=== PATIENT | male | born 1950 | race Caucasian/White ===

== ENCOUNTER → 2020-03-17 09:30 | Outpatient (BNVA) | payer MEDICARE, SELFPAY | PROVIDERS: Family Provider Family Medicine; PCP Family Medicine; Visit Provider Internal Medicine Cardiovascular Disease | DX: I48.91 Unspecified atrial fibrillation (principal); T46.0X1A Poisoning by cardiac-stimulant glycosides and drugs of similar action, accidental (unintentional), initial encounter; E78.5 Hyperlipidemia, unspecified | CPT/HCPCS: 80048; 80061; 80162; 85025 ==

== ENCOUNTER → 2021-01-18 13:46 | Outpatient (BNVA) | payer MEDICARE, SELFPAY | PROVIDERS: Family Provider Family Medicine; PCP Family Medicine; Visit Provider Family Medicine | DX: E11.65 Type 2 diabetes mellitus with hyperglycemia (principal); E11.621 Type 2 diabetes mellitus with foot ulcer; L97.509 Non-pressure chronic ulcer of other part of unspecified foot with unspecified severity | CPT/HCPCS: 83036 ==

== ENCOUNTER → 2021-03-26 09:38 | Outpatient (BNVA) | payer MEDICARE, SELFPAY | PROVIDERS: Family Provider Family Medicine; PCP Family Medicine; Visit Provider Internal Medicine Cardiovascular Disease | DX: Z86.79 Personal history of other diseases of the circulatory system (principal); Z79.899 Other long term (current) drug therapy | CPT/HCPCS: 80048; 80162; 85025 ==

== ENCOUNTER → 2021-04-23 09:05 | Outpatient (BNVA) | payer MEDICARE, SELFPAY | PROVIDERS: Family Provider Family Medicine; PCP Family Medicine; Visit Provider Family Medicine | DX: R73.9 Hyperglycemia, unspecified (principal) | CPT/HCPCS: 83036 ==

== ENCOUNTER → 2022-03-29 09:58 | Outpatient (BNVA) | payer MEDICARE, SELFPAY | PROVIDERS: Family Provider Family Medicine; PCP Family Medicine; Visit Provider Internal Medicine Cardiovascular Disease | DX: I48.91 Unspecified atrial fibrillation (principal); I10 Essential (primary) hypertension; K21.9 Gastro-esophageal reflux disease without esophagitis; E11.9 Type 2 diabetes mellitus without complications; Z79.84 Long term (current) use of oral hypoglycemic drugs; Z87.891 Personal history of nicotine dependence | CPT/HCPCS: 93005; 99214 ==

== ENCOUNTER 2022-05-29 12:40 | Outpatient (CLI) | payer MEDICARE, SELFPAY ==
--- NOTE | 2022-05-29 14:15 | USCV_ITS ---
Efrem Meza Age: 72 Gender: M : 1950 Exam Date: 05/29/2022 13:56 Ordering Phys: Jessie Machado MD ([email or web address]) Technologist: Umesh Ojeda Exam Location: [facility] [place] Indication: Shortness of breath BP: 132 / 76 HR: 73 Rhythm: Other Technical Quality: Adequate MEASUREMENTS (Male / Female) Normal Values 2D ECHO LV Diastolic Diameter PLAX 4.6 cm 4.2 - 5.9 / 3.9 - 5.3 cm LV Systolic Diameter PLAX 2.9 cm IVS Diastolic Thickness 0.5 cm 0.6 - 1.0 / 0.6 - 0.9 cm IVS Systolic Thickness 0.9 cm LVPW Diastolic Thickness 1.0 cm 0.6 - 1.0 / 0.6 - 0.9 cm LVPW Systolic Thickness 1.1 cm LVOT Diameter 2.0 cm LV Ejection Fraction 2D Teich 67.6 % LV Ejection Fraction MOD 2C 70.6 % LV Ejection Fraction 2C AL 70.9 % LA Diameter 4.0 cm LA Width 4.0 cm LA Height 5.4 cm RA Width 4.1 cm RA Height 6.2 cm Aorta at Sinotubular Diameter 2.6 cm IVC Diameter 1.7 cm M-MODE Aortic Annulus Diameter 2.9 cm LA Ao Ratio MM 1.4 MV E Point Septal Separation 0.7 cm DOPPLER AV Peak Velocity 116.3 cm/s LVOT Peak Velocity 100.0 cm/s AV Area Cont Eq vti 2.8 cm squared AV Area Cont Eq pk 2.7 cm squared MV Peak Velocity 138.0 cm/s MV Area PHT 4.1 cm squared MV E' Velocity 63.5 cm/s Mitral E to MV E' Ratio 7.7 Mitral E to LV E' Lateral Ratio 7.9 Mitral E to LV E' Septal Ratio 7.6 TR Peak Velocity 308.1 cm/s TR Peak Gradient 38.0 mmHg TR Mean Velocity 219.4 cm/s TR Mean Gradient 25.8 mmHg TR Velocity Time Integral 80.6 cm Right Atrial Pressure 3.0 mmHg Pulmonary Artery Systolic Pressu 41.0 mmHg PV Peak Velocity 80.0 cm/s RV Acceleration Time 0.1 s RV Ejection Time 0.2 s RV AcT/ET 0.3 FINDINGS Left Ventricle Normal left ventricular size, systolic function and wall thickness, with no regional wall motion abnormalities. Left ventricular ejection fraction is estimated at 60 %. Rhythm precludes evaluation of diastolic function. Right Ventricle Normal right ventricular size and systolic function. Right ventricular systolic pressure 44 mmHg. Right Atrium Mildly increased right atrial size. Left Atrium Mildly increased left atrial size. Mitral Valve Mildly thickened mitral valve. No mitral valve stenosis. Trace mitral valve regurgitation. Aortic Valve Aortic valve not well visualized. No aortic valve stenosis. No aortic valve regurgitation. Tricuspid Valve Structurally normal tricuspid valve. Trace tricuspid valve regurgitation. Pulmonic Valve Pulmonic valve not well visualized. Pericardium No pericardial effusion. Aorta Normal size aortic root and proximal ascending aorta. IVC Normal IVC dimension with >50% respiratory change of the inferior vena cava. CONCLUSIONS 1. Normal left ventricular size, systolic function and wall thickness, with no regional wall motion abnormalities. Left ventricular ejection fraction is estimated at 60 %. 2. No significant valvular abnormality. 3. No prior similar studies to compare. Jessie Machado MD (Electronically Signed) Final Date: 03 June 2022 09:17 S
== END 2022-05-29 12:41 | disposition home or self-care (01) ==
LOC: RAD 12:41
PROVIDERS: Family Provider Family Medicine; PCP Family Medicine; Visit Provider Internal Medicine Cardiovascular Disease
DX: R06.02 Shortness of breath (principal); I48.91 Unspecified atrial fibrillation
CPT/HCPCS: 93306

== ENCOUNTER → 2022-08-08 15:58 | Outpatient (BNVA) | payer MEDICARE, SELFPAY | PROVIDERS: Family Provider Family Medicine; PCP Family Medicine; Visit Provider Nurse Practitioner Family | DX: E11.9 Type 2 diabetes mellitus without complications (principal); I10 Essential (primary) hypertension | CPT/HCPCS: 80053; 80061; 83036; 84443 ==

== ENCOUNTER → 2023-03-28 08:56 | Outpatient (BNVA) | payer MEDICARE, SELFPAY | PROVIDERS: Family Provider Family Medicine; PCP Family Medicine; Visit Provider Internal Medicine Cardiovascular Disease | DX: I48.91 Unspecified atrial fibrillation (principal); Z87.891 Personal history of nicotine dependence; Z79.01 Long term (current) use of anticoagulants | CPT/HCPCS: 99214 ==

== ENCOUNTER → 2024-03-29 11:22 | Outpatient (BNVA) | payer MEDICARE, SELFPAY | PROVIDERS: Family Provider Family Medicine; PCP Family Medicine; Visit Provider Internal Medicine Cardiovascular Disease | DX: E78.5 Hyperlipidemia, unspecified (principal); R06.02 Shortness of breath | CPT/HCPCS: 36415; 80048; 80061; 80076; 83880 ==

== ENCOUNTER 2024-04-11 12:39 | Observation (INO) | payer MEDICARE, SELFPAY ==
[2024-04-11] VITALS (19 sets, daily range): BP systolic 112–155; BP diastolic 61–78; PULSE 75–117; RESP 15–22; TEMP 36.8–36.9; O2SAT 90–94; BMI 27.2; BMI 26.1
--- NOTE | 2024-04-11 12:40 | XRR_ITS ---
PROCEDURE INFORMATION: Exam: XR Chest Exam date and time: 04/11/2024 1:07 PM Age: 74 years old Clinical indication: Pain; Chest pressure; Additional info: Chest pain TECHNIQUE: Imaging protocol: Radiologic exam of the chest. Views: 1 view. COMPARISON: CT angio chest PE protcl [id number] 11/14/2017 7:32 AM FINDINGS: Lungs: There is very faint hazy interstitial coarsening throughout both lungs which is more pronounced in the right upper lobe. No dense consolidation or mass noted. Pleural spaces: Unremarkable. No pleural effusion. No pneumothorax. Heart/Mediastinum: Unremarkable. No cardiomegaly. Bones/joints: Unremarkable. XR/XR chest 1V portable [id number] IMPRESSION: Bilateral interstitial lung disease which has developed since 2018. This could represent acute interstitial pneumonia.
--- NOTE | 2024-04-11 12:40 | ECG_ITS ---
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 Measurements Intervals [place] Rate: 115 P: 0 HI: 0 QRS: 73 QRSD: 95 T: -16 QT: 361 QTc: 501 Interpretive Statements ATRIAL FIBRILLATION WITH RAPID VENTRICULAR RESPONSE WITH ABERRANT CONDUCTION OR VENTRICULAR PREMATURE COMPLEXES MARKED ST DEPRESSION No previous ECG available for comparison Electronically Signed On 04-12-2024 14:10:21 CDT by Johnie Garcia M.D. [email or web address]
[2024-04-11 13:00] LABS: Basophils # 0.1 10^3/uL (0.0-0.1); Basophils % 0.5 %; Eosinophils % 0.1 %; Hematocrit 41.1 % (37-53); Lymphocytes # 1.2 10^3/uL (0.8-4.8); Lymphocytes % 9.4 %; Mean Corpuscular HGB Conc 33.6 g/dL (30-55); Mean Corpuscular Hemoglobin 31.2 pg (27-33); Mean Corpuscular Volume 92.8 fl (82-101); Mean Platelet Volume 8.6 fL (7.4-10.4); Monocytes # 0.6 10^3/uL (0.2-0.9); Monocytes % 4.7 %; Neutrophils % 84.1 %; Nucleated Red Blood Cells % 0.2 %; Platelet Count 380 10^3/cmm (157-399); Red Blood Count 4.43 10^6/uL (3.85-5.65); Red Cell Distribution Width 15.7 % (12.1-15.1); White Blood Count 12.94 10^3/uL (3.29-11.43)
[2024-04-11] MEDS: dilTIAZem 5 mg/mL SDV 5 mL IVP (13:13)
[2024-04-11 13:16] LABS: INR 3.61 (0.8-1.2)
[2024-04-11] MEDS: dilTIAZem 100 MG in sodium chloride 0.9% (add-van) 100 ML IV (13:17)
[2024-04-11 13:26] LABS: Troponin(5th) Baseline 26 ng/L (0-15)
[2024-04-11 13:47] LABS: Digoxin 1.9 ng/mL (0.6-1.2)
[2024-04-11 14:14] LABS: Alanine Aminotransferase 13 U/L (0-41); Albumin Level 3.4 g/dL (3.5-5.2); Alkaline Phosphatase 104 U/L (40-130); Anion Gap 22.5 (5-19); Aspartate Amino Transferase 21 U/L (0-40); Blood Urea Nitrogen 18 mg/dL (8-23); Calcium 8.6 mg/dL (8.5-10.5); Carbon Dioxide 28 mmol/L (22-29); Chloride 85 mmol/L (98-107); Creatinine Clr Calc Pharmacy 98.4222; Globulin 4.5 g/dL (1.3-4.6); Glucose 205 mg/dL (65-115); NT Pro B Type Natriuretic Pept 863 pg/mL (0-125); Osmolality Calculated 282 mOsm/kg (285-295); Potassium 3.5 mmol/L (3.5-5.1); Sodium 132 mmol/L (136-145); Total Bilirubin 1.2 mg/dL (0.15-1.2); Total Protein 7.9 g/dL (6.6-8.7)
--- NOTE | 2024-04-11 14:24 | CTR_ITS ---
PROCEDURE INFORMATION: Exam: CTA Chest With Contrast Exam date and time: 04/11/2024 2:43 PM Age: 74 years old Clinical indication: Other: Right sided pleuritic chest pain TECHNIQUE: Imaging protocol: Computed tomographic angiography of the chest with contrast. Exam focused on the arteries. 3D rendering (Not supervised by radiologist): MIP and/or 3D reconstructed images were created by the technologist. Radiation optimization: All CT scans at this facility use at least one of these dose optimization techniques: automated exposure control; mA and/or kV adjustment per patient size (includes targeted exams where dose is matched to clinical indication); or iterative reconstruction. Contrast material: OMNI 350; Contrast volume: 75 ml; Contrast route: INTRAVENOUS (IV); COMPARISON: CT angio chest PE protcl [id number] 11/14/2017 7:32 AM RADIATION DOSE METRICS: Total DLP (mGy-cm): 461.76 FINDINGS: Pulmonary arteries: Normal. No pulmonary emboli. Aorta: Unremarkable. No aortic aneurysm. No aortic dissection. Lungs: There is diffuse nodular interstitial infiltrate throughout both lungs. The infiltrate is more pronounced on the right than left. No lung mass noted. Pleural spaces: Unremarkable. No pneumothorax. No pleural effusion. Heart: Unremarkable. No cardiomegaly. No pericardial effusion. Lymph nodes: Unremarkable. No enlarged lymph nodes. Bones/joints: Unremarkable. No acute fracture. Soft tissues: Unremarkable. CT/CT angio chest PE protcl [id number] IMPRESSION: Bilateral interstitial pneumonia
--- NOTE | 2024-04-11 14:40 | ECG_ITS ---
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 Measurements Intervals [place] Rate: 95 P: 0 LA: 0 QRS: 70 QRSD: 97 T: -6 QT: 406 QTc: 513 Interpretive Statements ATRIAL FIBRILLATION MARKED ST DEPRESSION Compared to ECG 04/11/2024 12:40:11 Ventricular premature complex(es) no longer present Aberrant conduction of supraventricular beat(s) no longer present ST (T wave) deviation still present Electronically Signed On 04-12-2024 14:16:08 CDT by Johnie Garcia M.D. [email or web address]
[2024-04-11] MEDS: iohexol 350 mg/mL 500 mL Btl (per mL) IV (14:47)
--- NOTE | 2024-04-11 15:08 | ED_ITS ---
HPI - Chest Pain 2 General: Chief Complaint: Chest Pain Stated Complaint: CP SOB Time Seen by Provider: 04/11/24 12:49 History of Present Illness: This patient is a 74-year-old white male who presents to the emergency department stating that he has had some right-sided chest discomfort since Friday morning. He states it only hurts with deep breathing. He has had a cough which has been nonproductive. No fever. No shortness of breath. Currently rates the chest discomfort a 3-4 with deep breathing only. He states last week he did have some lower extremity edema and his primary care physician had placed him on some Lasix and that has resolved now. Patient does have a history of atrial fibrillation and is on Xarelto, digoxin and diltiazem as well as metoprolol. Also has a history of congestive heart failure, neuropathy and dum-[id number] diabetes. He does not smoke. Related Data Home Medications Medication Instructions Recorded Confirmed aspirin 81 mg tablet,delayed 81 mg PO DAILY 03/17/20 03/29/24 release (Adult Aspirin Regimen) blood sugar diagnostic (Accutrend 04/09/21 03/31/24 Glucose test strips) Previous Rx's Medication Instructions Recorded blood-glucose meter (Accu-Chek #1 ea 01/19/21 Guide Glucose Meter) lancets (Accu-Chek Softclix #200 ea 01/19/21 Lancets) atorvastatin 40 mg tablet 40 mg PO .HS #90 tabs 02/04/23 digoxin 250 mcg (0.25 mg) tablet 250 mcg PO DAILY #90 tabs 03/11/23 diltiazem HCl 180 mg capsule,24 180 mg PO DAILY #90 caps 03/11/23 hr,extended release rivaroxaban 20 mg tablet (Xarelto) 20 mg PO DAILY #90 tabs 03/28/23 omeprazole 20 mg capsule,delayed See Rx Instructions .Route 05/26/23 release .COMPLEX #90 caps metformin 500 mg tablet 500 mg PO BID #180 tabs 01/28/24 metoprolol succinate 50 mg 50 mg PO DAILY #90 tabs 01/28/24 tablet,extended release 24 hr furosemide 20 mg tablet (Lasix) 20 mg PO DAILY #30 tabs 04/01/24 potassium chloride 10 mEq 10 meq PO DAILY #90 tabs 04/09/24 tablet,extended release potassium chloride 20 mEq 20 meq PO DAILY #90 tabs 04/09/24 tablet,extended release Allergies Allergy/AdvReac Type Severity Reaction Status Date / Time No Known Allergies Allergy Verified 04/11/24 12:56 Review of Systems 2 General: Reports: 10 or more systems reviewed and unremarkable except in HPI and below Card: Reports: chest pain Resp: Reports: non-productive cough PFSH ED 2 PFSH: Medical History Diabetes History of dysphagia History of Helicobacter pylori infection Hx of gastroesophageal reflux (GERD) History of cellulitis History of benign adrenal tumor Hx of pleurisy Hx of peripheral neuropathy History of hypertension History of atrial fibrillation Surgical History Hx of bilateral cataract extraction Hx of colonoscopy Social History Smoking and tobacco/nicotine status: former use of tobacco/nicotine Alcohol intake: never Physical Exam 2 Const: COMMON NORMALS: no acute distress, patient oriented x3 and no limitations GENERAL APPEARANCE: cooperative and comfortable HENMT: COMMON NORMALS: normocephalic, atraumatic, Normal nasal mucous membranes and turbinates present, moist oral mucous membranes and oropharynx normal HEAD & SCALP: normal to inspection, normocephalic and atraumatic F LETI & SINUS: normal facial exam NOSE: Normal nasal mucous membranes and turbinates present Eye: COMMON NORMALS: Equal, round and reactive pupils present, EOMs intact bilaterally and conjunctivae normal GENERAL EYE: appearance normal, both eyes and all related structures CONJUNCTIVA: Yes conjunctivae normal PUPIL: Yes Equal, round and reactive pupils present Neck/C-Spine: COMMON NORMALS: supple Chest: COMMONS NORMALS: normal inspection of the chest Resp: COMMON NORMALS: normal respiratory effort AUSCULTATION: rhonchi Cardio: COMMON NORMALS: No murmurs present (Cardio) RATE: tachycardic R HYTHM: abnormal rhythm irregularly irregular GI: COMMON NORMALS: Normal to inspection, nondistended, normoactive bowel sounds present, Soft to palpation and non-tender AUSCULTATION: Yes normoactive bowel sounds PALPATION: Yes Soft to palpation : COMMON NORMALS: Yes no CVA tenderness BLADDER/KIDNEY EXAM: Yes no CVA tenderness Back/Pelvis: COMMON NORMALS: no CVA tenderness and thoracic and lumbar spine normal to inspection Extremity: COMMON NORMALS: normal to inspection Neuro: COMMON NORMALS: patient oriented x3 and CN's II-XII intact bilaterally Psych: COMMON NORMALS: mental status grossly normal, Normal thought process present and cooperative THOUGHT PROCESS: Normal thought process present Skin: COMMON NORMALS: no rashes or lesions noted, turgor normal and no jaundice GENERAL SKIN EXAM: no rashes or lesions noted and turgor normal Course 2 Vital Signs: Vital signs: Vital Signs Temperature 98.3 F 04/11/24 12:47 Pulse Rate 95 04/11/24 14:15 Respiratory Rate 18 04/11/24 15:27 Blood Pressure 141/76 04/11/24 15:45 Pulse Oximetry 93 04/11/24 15:45 Oxygen Delivery Me thod Room Air 04/11/24 12:47 MDM - Chest Pain Medical Decision Making Initially STEMI was called on this patient because he had an EKG done in the waiting room. The EKG showed ST depression in the lateral precordial leads so I called off the STEMI. Dr. Garcia close contacted and he did evaluate the patient in the emergency department. Patient's symptoms are not consistent with STEMI either. He is having right-sided pleuritic pain. He is also in atrial fibrillation with rapid ventricular response. Patient may be having some demand ischemia due to the tachycardia. I did order Cardizem bolus and Cardizem drip. We did get his heart rate down. CBC reveals a white blood cell count of 12.9. CMP was normal except for a blood sugar of 205. His INR was 3.6. BNP was 863 up from 522. Digoxin level was 1.9. Baseline troponin was 26 with a 2-hour level of 30. Chest x-ray was read by the radiologist as some interstitial disease. CTA of the chest to rule out PE was read by the radiologist. There is no PE. He does have bilateral interstitial pneumonia. Patient was then placed on Rocephin and Zithromax. He was given some morphine for his chest discomfort as well as Zofran. Patient will need to be admitted. I discussed the case with Dr. Macias at 3:41 PM. She did accept the patient. Patient will be admitted to the cardiac stepdown unit. Dr. Garcia said he would follow as needed. Patient will be transferred to the floor soon as the bed is available. Patient is stable and comfortable. Lab Data 04/11/24 12:55 04/11/24 12:55 Radiology Impressions Chest X-Ray 04/11/24 12:40 IMPRESSION: Bilateral interstitial lung disease which has developed since 2018. This could represent acute interstitial pneumonia. Chest CTA 04/11/24 14:24 IMPRESSION: Bilateral interstitial pneumonia Laboratory Results WBC 12.94 10^3/uL (3.29-11.43) H 04/11/24 12:55 RBC 4.43 10^6/uL (3.85-5.65) 04/11/24 12:55 Hgb 13.80 g/dL (11.27-16.99) 04/11/24 12:55 Hct 41.1 % (37-53) 04/11/24 12:55 MCV 92.8 fl (82-101) 04/11/24 12:55 MCH 31.2 pg (27-33) 04/11/24 12:55 MCHC 33.6 g/dL (30-55) 04/11/24 12:55 RDW 15.7 % (12.1-15.1) H 04/11/24 12:55 Plt Count 380 10^3/cmm (157-399) 04/11/24 12:55 MPV 8.6 fL (7.4-10.4) 04/11/24 12:55 Neut % (Auto) 84.1 % 04/11/24 12:55 Lymph % (Auto) 9.4 % 04/11/24 12:55 [place] % (Auto) 4.7 % 04/11/24 12:55 Eos % (Auto) 0.1 % 04/11/24 12:55 Baso % (Auto) 0.5 % 04/11/24 12:55 Neut # (Auto) 10.90 10^3/uL (1.8-7.7) H 04/11/24 12:55 Lymph # (Auto) 1.2 10^3/uL (0.8-4.8) 04/11/24 12:55 [place] # (Auto) 0.6 10^3/uL (0.2-0.9) 04/11/24 12:55 Eos # (Auto) 0.0 10^3/uL (0.0-0.8) 04/11/24 12:55 Baso # (Auto) 0.1 10^3/uL (0.0-0.1) 04/11/24 12:55 Nucleated RBC % (auto) 0.2 % 04/11/24 12: Nucleated RBCs # 0.0 /100WBC 04/11/24 12:55 PT 37.40 SECONDS (12.1-14.9) H 04/11/24 12:55 INR 3.61 (0.8-1.2) H 04/11/24 12:55 Sodium 132 mmol/L (136-145) L 04/11/24 12:55 Potassium 3.5 mmol/L (3.5-5.1) 04/11/24 12:55 Chloride 85 mmol/L (98-107) L 04/11/24 12:55 Carbon Dioxide 28 mmol/L (22-29) 04/11/24 12:55 Anion Gap 22.5 (5-19) H 04/11/24 12:55 BUN 18 mg/dL (8-23) 04/11/24 12:55 Creatinine 0.9 mg/dL (0.7-1.2) 04/11/24 12:55 GFR Calculation Not Reportable 04/11/24 12: Glucose 205 mg/dL (65-115) H 04/11/24 12:55 Calculated Osmolality 282 mOsm/kg (285-295) L 04/11/24 12:55 Calcium 8.6 mg/dL (8.5-10.5) 04/11/24 12:55 Total Bilirubin 1.2 mg/dL (0.15-1.2) 04/11/24 12:55 AST 21 U/L (0-40) 04/11/24 12:55 ALT 13 U/L (0-41) 04/11/24 12:55 Alkaline Phosphatase 104 U/L (40-130) 04/11/24 12:55 Troponin T Baseline 26 ng/L (0-15) H 04/11/24 12:55 Troponin T 120 Minute 30.05 ng/L (0-15) H 04/11/24 15:04 Delta Troponin T 4.05 ABS# (0-10) 04/11/24 15:04 NT-Pro-B Natriuret Pep 863 pg/mL (0-125) H 04/11/24 12:55 Total Protein 7.9 g/dL (6.6-8.7) 04/11/24 12:55 Albumin 3.4 g/dL (3.5-5.2) L 04/11/24 12:55 Globulin 4.5 g/dL (1.3-4.6) 04/11/24 12:55 Digoxin 1.9 ng/mL (0.6-1.2) H 04/11/24 12:55 All radiology interpretation(s) finalized by discharge Discharge Plan Discharge Condition: Stable Prescriptions: No Action aspirin [Adult Aspirin Regimen] 81 mg tablet,delayed release (DR/EC) 81 mg PO DAILY (DME) Accutrend Glucose test strips Strip See Rx Instructions .Route Rx Instructions: As directed to test BS BID (DME) blood-glucose meter [Accu-Chek Guide Glucose Meter] Misc See Rx Instructions .Route Qty: 1 0RF Rx Instructions: As directed (DME) lancets [Accu-Chek Softclix Lancets] Misc See Rx Instructions .Route Qty: 200 11RF Rx Instructions: As directed atorvastatin 40 mg tablet 40 mg PO .HS Qty: 90 3RF digoxin 250 mcg (0.25 mg) tablet 250 mcg PO DAILY Qty: 90 3RF diltiazem HCl 180 mg capsule,extended release 24 hr 180 mg PO DAILY Qty: 90 4RF Xarelto 20 mg tablet 20 mg PO DAILY Qty: 90 3RF Rx Instructions: must administer with evening meal omeprazole 20 mg capsule,delayed release(DR/EC) See Rx Instructions .ROUTE .COMPLEX Qty: 90 3RF Dose Instruction: TAKE 1 CAPSULE DAILY Rx Instructions: TAKE 1 CAPSULE DAILY metoprolol succinate 50 mg tablet extended release 24 hr 50 mg PO DAILY Qty: 90 3RF metformin 500 mg tablet 500 mg PO BID Qty: 180 2RF furosemide [Lasix] 20 mg tablet 20 mg PO DAILY Qty: 30 1RF potassium chloride 20 mEq tablet extended release 20 meq PO DAILY Qty: 90 0RF Rx Instructions: Take 30 mg daily with lasix potassium chloride 10 mEq tablet extended release 10 meq PO DAILY Qty: 90 0RF Rx Instructions: take 30 mEq daily with lasix Referrals: Henegar,Edward, DO [Primary Care Provider] - Coding Level of Care Code ED [facility] for Tavon Hillman
[2024-04-11] MEDS: ondansetron 2 mg/ML SDV 2 mL 4 MG IVP (15:25)
[2024-04-11 15:26] LABS: Troponin 5 2HR 30.05 ng/L (0-15); Troponin 5 2HR Delta 4.05 ABS# (0-10)
[2024-04-11] MEDS: morphine 4 mg/mL SDV 1 mL 2 MG IVP (15:27)
[2024-04-11] MEDS: cefTRIAXone 2,000 mg SDV 2000 MG IVP (15:30)
[2024-04-11] MEDS: azithromycin 500 MG in sodium chloride 0.9% 250 ML 250 MG IV (15:46)
--- NOTE | 2024-04-11 16:17 | P.CONIM_ITS ---
Providers/Reason For Consult 2 Consulting Physician/Specialty*: Johnie Garcia MD/ Cardiology Reason for Consult*: EKG changes/ Chest pain Requesting Physician: Dr Lowery Attending Physician: Dr Macias Primary Care Provider: Armando Sanchez DO History of Present Illness History of Present Illness Efrem Meza is a 74 year old male with past medical history of atrial fibrillation who presented to hospital with several days of right-sided chest discomfort, malaise and cough. Cardiology was consulted as EKG was showing atrial fibrillation with RVR and ST depressions diffusely. Patient's chest pain is pleuritic and on right side. Review of Systems 2 Const: Denies: fever(s) Eyes: Denies: change in vision ENMT: Denies: throat pain Card: Reports: chest pain Resp: Reports: dyspnea GI: Denies: abdominal pain : Denies: flank pain Medications/Allergies Home Medications Medication Instructions Recorded Confirmed Last Taken Type aspirin 81 mg tablet,delayed 81 mg PO DAILY 03/17/20 03/29/24 Unknown History release (Adult Aspirin Regimen) blood-glucose meter (Accu-Chek #1 ea 01/19/21 03/31/24 Unknown Rx Guide Glucose Meter) lancets (Accu-Chek Softclix #200 ea 01/19/21 03/31/24 Unknown Rx Lancets) blood sugar diagnostic (Accutrend 04/09/21 03/31/24 Unknown History Glucose test strips) atorvastatin 40 mg tablet 40 mg PO .HS #90 tabs 02/04/23 03/29/24 Unknown Rx digoxin 250 mcg (0.25 mg) tablet 250 mcg PO DAILY #90 tabs 03/11/23 03/29/24 Unknown Rx diltiazem HCl 180 mg capsule,24 180 mg PO DAILY #90 caps 03/11/23 03/29/24 Unknown Rx hr,extended release rivaroxaban 20 mg tablet (Xarelto) 20 mg PO DAILY #90 tabs 03/28/23 03/29/24 Unknown Rx omeprazole 20 mg capsule,delayed See Rx Instructions .Route 05/26/23 03/29/24 Unknown Rx release .COMPLEX #90 caps metformin 500 mg tablet 500 mg PO BID #180 tabs 01/28/24 03/29/24 Unknown Rx metoprolol succinate 50 mg 50 mg PO DAILY #90 tabs 01/28/24 03/29/24 Unknown Rx tablet,extended release 24 hr furosemide 20 mg tablet (Lasix) 20 mg PO DAILY #30 tabs 04/01/24 Unknown Rx potassium chloride 10 mEq 10 meq PO DAILY #90 tabs 04/09/24 Unknown Rx tablet,extended release potassium chloride 20 mEq 20 meq PO DAILY #90 tabs 04/09/24 Unknown Rx tablet,extended release Allergies Allergy/AdvReac Type Severity Reaction Status Date / Time No Known Allergies Allergy Verified 04/11/24 12:56 Current Medications Generic Name Dose Route Start Last Admin Trade Name Freq PRN Reason Stop Dose Admin Diltiazem HCl 100 mg/ Sodium 100 mls @ 0 mls/hr 04/11/24 13:00 04/11/24 13:17 Chloride IV 5 mg/hr .Q0M SALINA 5 mls/hr Administration Protocol Per Protocol PFSH Acute 2 PFSH: Medical History Diabetes History of dysphagia History of Helicobacter pylori infection Hx of gastroesophageal reflux (GERD) History of cellulitis History of benign adrenal tumor Hx of pleurisy Hx of peripheral neuropathy History of hypertension History of atrial fibrillation Surgical History Hx of bilateral cataract extraction Hx of colonoscopy Social History Smoking and tobacco/nicotine status: former use of tobacco/nicotine Alcohol intake: never Vitals/I&O/Wt Last Vital Signs Temp 98.3 F 04/11/24 12:47 Pulse 95 04/11/24 14:15 Resp 18 04/11/24 15:27 BP 141/76 04/11/24 15:45 Pulse Ox 93 04/11/24 15:45 O2 Del Method Room Air 04/11/24 12:47 Weight last 48 hrs Weight 230 lb Physical Exam 2 Narrative: GENERAL: Patient is alert, awake and oriented x3. [] NECK: No jugular vein distension. [] HEENT: No cyanosis. No icterus. No pallor. [] HEART: Irregularly irregular, tachycardic LUNGS: Clear to auscultate bilaterally. [] CENTRAL NERVOUS SYSTEM: Grossly nonfocal. [] EXTREMITIES: Lower extremities with no edema bilaterally. Data 04/11/24 12:55 04/11/24 12:55 A&P Assessment and plan (1) Atrial fibrillation with RVR: (2) Chest pain: Plan Patient's chest pain symptoms are atypical. He likely has pneumonia. CTA is pending. Trend troponins. Heart rate controlled. Can start Cardizem gtt. Order echocardiogram. EKG changes likely secondary to demand ischemia in setting of possible infection and if with RVR. Once patient is stable, can consider stress test versus coronary angiogram depending on troponin levels. Thank you for involving us with care of this patient. We will continue to follow. Please call with questions. Consult Attestations 2 Medical Necessity Statement: Care expected to cross 2 midnights. Coding Level of Care Code Acute Code for [facility] Diagnoses Atrial fibrillation with RVR I48.91 Chest pain R07.9
[2024-04-11 17:24] LABS: Estmated Average Glucose 128; Hemoglobin A1C 6.1 % (4.0-6.0)
[2024-04-11 17:27] LABS: Chol HDL Ratio 3.08 mg/dL (1.0-5.00); Cholesterol 80 mg/dL (0-200); HDL Cholesterol 26 mg/dL (60-100); LDL Cholesterol Calculated 36 mg/dL (50-129); LDL HDL Ratio 1.38 RATIO (0.00-3.22); Triglycerides 91 mg/dL (0-150)
[2024-04-11] MEDS: sodium chloride 0.9% 1,000 ML 75 ML IV (17:46)
--- NOTE | 2024-04-11 18:13 | P.HP_ITS ---
Providers/Chief Complaint 2 Admitting Physician: Luma Macias MD Primary Care Provider: Armando Sanchez DO Chief Complaint: CP, SOB History of Present Illness Efrem Meza is a 74 year old male chronic anticoagulation for A-fib, does not use oxygen at baseline, lives with his , presented with chief complaint of generalized weakness and fatigue shortness of breath for last 1 week. He has not noticed any fever, diarrhea or chest pain. In the ER code STEMI was called which was canceled by the site project manager, he has stable inversion, digoxin level 1.9. No active chest pain. He is in A-fib RVR required Cardizem drip at the time of evaluation heart rate is in 90s I have asked nurse to discontinue IV fluids and Cardizem drip continue p.o. regimen. Patient has bilateral conjunctivitis eye redness right. Than left I have requested COVID PCR Seem like he had bilateral infiltrate in 2018 chest x-ray as well Review of Systems 2 Const: Denies: fever(s) Eyes: Denies: change in vision ENMT: Denies: throat pain Card: Denies: chest pain Resp: Reports: dyspnea GI: Denies: abdominal pain : Denies: flank pain Medications/Allergies Home Medications Medication Instructions Recorded Confirmed Last Taken Type aspirin 81 mg tablet,delayed 81 mg PO DAILY 03/17/20 03/29/24 Unknown History release (Adult Aspirin Regimen) blood-glucose meter (Accu-Chek #1 ea 01/19/21 03/31/24 Unknown Rx Guide Glucose Meter) lancets (Accu-Chek Softclix #200 ea 01/19/21 03/31/24 Unknown Rx Lancets) blood sugar diagnostic (Accutrend 04/09/21 03/31/24 Unknown History Glucose test strips) atorvastatin 40 mg tablet 40 mg PO .HS #90 tabs 02/04/23 03/29/24 Unknown Rx digoxin 250 mcg (0.25 mg) tablet 250 mcg PO DAILY #90 tabs 03/11/23 03/29/24 Unknown Rx diltiazem HCl 180 mg capsule,24 180 mg PO DAILY #90 caps 03/11/23 03/29/24 Unknown Rx hr,extended release rivaroxaban 20 mg tablet (Xarelto) 20 mg PO DAILY #90 tabs 03/28/23 03/29/24 Unknown Rx omeprazole 20 mg capsule,delayed See Rx Instructions .Route 05/26/23 03/29/24 Unknown Rx release .COMPLEX #90 caps metformin 500 mg tablet 500 mg PO BID #180 tabs 01/28/24 03/29/24 Unknown Rx metoprolol succinate 50 mg 50 mg PO DAILY #90 tabs 01/28/24 03/29/24 Unknown Rx tablet,extended release 24 hr furosemide 20 mg tablet (Lasix) 20 mg PO DAILY #30 tabs 04/01/24 Unknown Rx potassium chloride 10 mEq 10 meq PO DAILY #90 tabs 04/09/24 Unknown Rx tablet,extended release potassium chloride 20 mEq 20 meq PO DAILY #90 tabs 04/09/24 Unknown Rx tablet,extended release Allergies Allergy/AdvReac Type Severity Reaction Status Date / Time No Known Allergies Allergy Verified 04/11/24 12:56 PFSH Acute 2 PFSH: Medical History Diabetes History of dysphagia History of Helicobacter pylori infection Hx of gastroesophageal reflux (GERD) History of cellulitis History of benign adrenal tumor Hx of pleurisy Hx of peripheral neuropathy History of hypertension History of atrial fibrillation Surgical History Hx of bilateral cataract extraction Hx of colonoscopy Social History Smoking and tobacco/nicotine status: former use of tobacco/nicotine Alcohol intake: never Vitals/I&O/Wt Last Vital Signs Temp 98.3 F 04/11/24 12:47 Pulse 82 04/11/24 17:56 Resp 15 04/11/24 16:30 BP 127/65 04/11/24 17:56 Pulse Ox 93 04/11/24 17:56 O2 Del Method Nasal Cannula 04/11/24 17:56 O2 Flow Rate 2 04/11/24 17:56 04/11/24 04/11/24 04/11/24 06:59 14:59 22:59 Intake Total 370 / 370 Balance 370 / 370 Weight last 48 hrs Weight 100 kg Weight 104.326 kg Physical Exam 2 Narrative: Pleasant cooperative Euvolemic GCS 15 Bilateral conjunctivitis right greater than left Nonfocal neuroexam Awake and alert at the bedside A-fib without RVR Bilateral rhonchi on auscultation Data 04/11/24 12:55 04/11/24 12:55 A&P Assessment and plan (1) History of atrial fibrillation: (2) Hx of gastroesophageal reflux (GERD): (3) Leg swelling: (4) Conjunctivitis: (5) Pneumonia: Plan Worsening shortness of breath Check COVID PCR Underlying interstitial pneumonia seems chronic Patient not smoking Currently requiring 2 L nasal cannula Ceftriaxone and doxycycline initiated A-fib RVR Wean off Cardizem drip Hold off on digoxin Continue metoprolol and Cardizem p.o. regimen for now Continue Xarelto Diastolic CHF without acute exacerbation hold off on IV fluids and diuretics for now Patient has not been eating well for last 1 week Full code Cardiac diet DVT prophylaxis covered Flaviarelto Armaan 2 Medical Necessity Statement*: More than 2 midnights anticipated Diagnoses History of atrial fibrillation Z86.79 Hx of gastroesophageal reflux (GERD) Z87.19 Leg swelling M79.89 Conjunctivitis H10.9 Pneumonia J18.9
[2024-04-11 18:36] LABS: Procalcitonin 0.44 ng/mL (0-0.5); Thyroid Stimulating Hormone 0.78 uIU/mL (0.27-4.20)
--- NOTE | 2024-04-11 18:36 | PC.NURSE ---
received pt from ER pt alert,oriented, coughing. on 2 L/min NC. Pt tele shows controlled Afib HR-80-90s. Pt has squinting right eye with moderate drainage, no redness around sclera. pt denies any pain,itching on right eye.Pt does report right lower lateral back pain of 2 out of 10 scale. Noted moderate hard bruise, purplish to greenish now in color. Pt denies any pain when touched. Has also bruise on right posterior upper arm. Pt and informed nurse that he fell on Friday. Dr Sanderson at bedside and looked at it. verbal orders to stopped iv fluid and cardizem drip and start oral cardizem. call light provided to pt.
--- NOTE | 2024-04-11 18:40 | ECG_ITS ---
[facility] Test Date: 2024-04-11 Pat Name: Efrem Meza Department: Room: 106 Gender: Male Hand Lacer: : 1950 Requested By: Garret Sahni Order Number: [id number] Copeland MD: Johnie Garcia M.D. Measurements Intervals [place] Rate: 97 P: 0 SC: 0 QRS: 61 QRSD: 106 T: -12 QT: 417 QTc: 530 Interpretive Statements ATRIAL FIBRILLATION MARKED ST DEPRESSION Compared to ECG 04/11/2024 14:50:12 No significant changes Electronically Signed On 04-12-2024 14:15:26 CDT by Johnie Garcia M.D. [email or web address]
[2024-04-11 19:06] LABS: Glucose Point of Care 154 mg/dL (70-110)
[2024-04-11 19:08] LABS: Troponin 5 6HR 23.82 ng/L (0-15)
[2024-04-11 19:13] LABS: Troponin 5 6HR Delta -2.18 ng/L (0-12)
[2024-04-11] MEDS: predniSONE 20 mg Tablet 40 MG PO (19:38)
[2024-04-11] MEDS: doxycycline 100 mg Tablet PO (19:38)
[2024-04-11] MEDS: dilTIAZem 60 mg Tablet PO (19:38)
[2024-04-11 20:45] LABS: Glucose Point of Care 185 mg/dL (70-110)
[2024-04-11] MEDS: ciprofloxacin 0.3% Op Soln 2.5 mL Btl 1 DROP EYE-BOTH (21:47)
[2024-04-11] MEDS: flu vacc pf 24-25 (6 mos+) SYRINGE 45 MCG IM (21:47)
[2024-04-11] MEDS: pneumococcal (23 valent) SDV 0.5 mL IM (21:50)
[2024-04-11] MEDS: insulin lispro 100 unit/1 mL SUBCUT (21:52)
[2024-04-11] MEDS: metoprolol tartrate 50 mg Tablet PO (21:53)
[2024-04-12] VITALS (9 sets, daily range): BP systolic 106–127; BP diastolic 57–65; PULSE 65–97; RESP 20; TEMP 36.3–36.6; O2SAT 92–97
[2024-04-12 00:06] LABS: Adenovirus Not Detected (NOT DETECT); Chlamydia Pneumoniae Not Detected (NOT DETECT); Coronavirus 229E,HKU1,NL63,OC4 Not Detected (NOT DETECT); Human Metapneumovirus Not Detected (NOT DETECT); Human Rhinovirus/Enterovirus Not Detected (NOT DETECT); Influenza A Not Detected (NOT DETECT); Influenza A H1 Not Detected (NOT DETECT); Influenza A H1-2009 Not Detected (NOT DETECT); Influenza A H3 Not Detected (NOT DETECT); Influenza B Not Detected (NOT DETECT); Mycoplasma Pneumoniae Not Detected (NOT DETECT); Parainfluenza Virus Type 1 Not Detected (NOT DETECT); Parainfluenza Virus Type 2 Not Detected (NOT DETECT); Parainfluenza Virus Type 3 Not Detected (NOT DETECT); Parainfluenza Virus Type 4 Not Detected (NOT DETECT); Respiratory Syncytial Virus A Not Detected (NOT DETECT); Respiratory Syncytial Virus B Not Detected (NOT DETECT); SARS-COV-2 Not Detected (NOT DETECT)
--- NOTE | 2024-04-12 01:20 | PC.NURSE ---
Pt HR anywhere from 55-65 and in afib. Note sent to doc about diltiazem dose. Orders to hold dose.
[2024-04-12 04:34] LABS: Basophils % 0.3 %; Hematocrit 38.3 % (37-53); Lymphocytes # 0.9 10^3/uL (0.8-4.8); Lymphocytes % 9.2 %; Mean Corpuscular HGB Conc 33.4 g/dL (30-55); Mean Corpuscular Hemoglobin 31.4 pg (27-33); Mean Corpuscular Volume 94.1 fl (82-101); Mean Platelet Volume 8.8 fL (7.4-10.4); Monocytes # 0.2 10^3/uL (0.2-0.9); Monocytes % 2.3 %; Neutrophils # 8.33 10^3/uL (1.8-7.7); Neutrophils % 86.8 %; Nucleated Red Blood Cells % 0 %; Platelet Count 307 10^3/cmm (157-399); Red Blood Count 4.07 10^6/uL (3.85-5.65); Red Cell Distribution Width 15.8 % (12.1-15.1); White Blood Count 9.59 10^3/uL (3.29-11.43)
[2024-04-12 04:53] LABS: Alanine Aminotransferase 11 U/L (0-41); Albumin Level 2.9 g/dL (3.5-5.2); Alkaline Phosphatase 94 U/L (40-130); Anion Gap 17.7 (5-19); Aspartate Amino Transferase 23 U/L (0-40); Blood Urea Nitrogen 26 mg/dL (8-23); Calcium 8.4 mg/dL (8.5-10.5); Carbon Dioxide 29 mmol/L (22-29); Chloride 91 mmol/L (98-107); Globulin 4.3 g/dL (1.3-4.6); Glucose 202 mg/dL (65-115); Osmolality Calculated 289 mOsm/kg (285-295); Potassium 3.7 mmol/L (3.5-5.1); Sodium 134 mmol/L (136-145); Total Bilirubin 0.7 mg/dL (0.15-1.2); Total Protein 7.2 g/dL (6.6-8.7)
[2024-04-12 06:49] LABS: Glucose Point of Care 217 mg/dL (70-110)
[2024-04-12] MEDS: insulin lispro 100 unit/1 mL SUBCUT ×4 (07:19→21:24)
[2024-04-12] MEDS: cefTRIAXone 1,000 mg SDV 1000 MG IVP (07:19)
[2024-04-12] MEDS: metoprolol tartrate 50 mg Tablet PO (07:20)
[2024-04-12] MEDS: predniSONE 20 mg Tablet 40 MG PO (07:20)
[2024-04-12] MEDS: pantoprazole DR 40 mg Tablet PO (07:20)
[2024-04-12] MEDS: dilTIAZem 60 mg Tablet PO (07:20)
[2024-04-12] MEDS: rivaroxaban 10 mg Tablet 20 MG PO (07:20)
[2024-04-12] MEDS: doxycycline 100 mg Tablet PO ×2 (07:20→17:43)
[2024-04-12] MEDS: ciprofloxacin 0.3% Op Soln 2.5 mL Btl 1 DROP EYE-BOTH ×4 (07:30→21:24)
--- NOTE | 2024-04-12 08:24 | PM.PN ---
Subjective Subjective: Heart rate is controlled. No chest pain Vitals/I&O/Wt Last Vital Signs Temp 97.8 F 04/12/24 07:28 Pulse 86 04/12/24 07:28 Resp 20 H 04/12/24 07:28 BP 113/62 04/12/24 07:28 Pulse Ox 93 04/12/24 07:28 O2 Del Method Nasal Cannula 04/12/24 07:28 O2 Flow Rate 2 04/12/24 07:28 04/11/24 04/12/24 04/12/24 22:59 06:59 14:59 Intake Total 530 / 530 Output Total 150 / 150 Balance 530 / 530 -150 / 380 Weight last 48 hrs Weight 225 lb 1.471 oz Weight 220 lb 7.396 oz Weight 230 lb Physical Exam Narrative: GENERAL: Patient is alert, awake and oriented x3. [] NECK: No jugular vein distension. [] HEENT: No cyanosis. No icterus. No pallor. [] HEART: Irregularly irregular, tachycardic LUNGS: Clear to auscultate bilaterally. [] CENTRAL NERVOUS SYSTEM: Grossly nonfocal. [] EXTREMITIES: Lower extremities with no edema bilaterally. Data 04/13/24 02:38 04/13/24 02:38 A&P Assessment and plan (1) Atrial fibrillation with RVR: (2) Chest pain: Plan Patient's heart rate has improved. Cardizem gtt. has been discontinued. Continue p.o. medications. Continue anticoagulation. Echocardiogram ordered. If EF is normal, can be followed up as outpatient. Otherwise may need a stress test. Thank you for involving us with care of this patient. We will continue to follow. Please call with questions. Attestations Medical Necessity Statement*: Care expected to cross 2 midnights. Coding Level of Care Code Acute Code for [facility] Fwd Diagnoses Atrial fibrillation with RVR I48.91 Chest pain R07.9
--- NOTE | 2024-04-12 09:17 | PC.CHAP ---
Pastoral Care Encounter/Spiritual Assessment Type of Contact [] Declined parer visit [] Patient/Family/Request visit [] Outpatient visit [] Follow-up visit [] Physician referral [] Code/Alert [x] Routine visit [] Staff referral [] Actively dying [] Patient sleeping [x] Family support [] [] Out of room [] Palliative care [] [] Receiving care in room [] Pre-surgical visit [] Trauma [] Long length of stay [] ICU visit [] Other: Relational/Emotional Strength [] Patient feels connected with others/family/visitors/staff [] Distress [] Loneliness/isolation [] Abandonment Spirituality of Patient [] Person of Sarah [] Attends [facility] of their Sarah [x] Believes in Prayer [] Reads Bible or Orthodox materials [] There are Spiritual issues to be addressed Personal Computer Network Engineer Interventions [x] Prayer [x] Active listening [] Non-anxious presence [] Spiritual/emotional support [] Crisis/trauma care [] Spiritual counseling [] Bereavement support [] Provided bereavement packet [x] Provided Bible/devotional materials [] Provided toy/stuffed animal, coloring book to patient or family member [] Provided Communion [] Anointing/[place] [] Salvation [x] Completed spiritual assessment [] Other: Impact on Illness or Injury [] Angry [] Fearful [] Anxious [] Often cries [] Exhaustion [] Unable to work [] Unable to attend denominational [] Unable to walk/stand [] Unable to read [] Unable to drive [] Unable to eat/drink [] Unable to sleep [] Unable to be with family [] Patient intubated [] Other: Summary Time spent with patient 5 min
--- NOTE | 2024-04-12 09:53 | P.PN_ITS ---
Subjective 2 Subjective: Patient is stating that his cough has improved slightly he is on 2 L of oxygen He became bradycardic, AV jonelle blocking agent dose adjusted today No active symptoms of bradycardia Cardizem discontinued Only keep low-dose metoprolol Digoxin on hold Vitals/I&O/Wt Last Vital Signs Temp 97.8 F 04/12/24 07:28 Pulse 86 04/12/24 07:28 Resp 20 H 04/12/24 07:28 BP 113/62 04/12/24 07:28 Pulse Ox 93 04/12/24 07:28 O2 Del Method Nasal Cannula 04/12/24 07:28 O2 Flow Rate 2 04/12/24 07:28 04/11/24 04/12/24 04/12/24 22:59 06:59 14:59 Intake Total 530 / 530 120 / 120 Output Total 150 / 150 Balance 530 / 530 -150 / 380 120 / 120 Weight last 48 hrs Weight 102.1 kg Weight 100 kg Weight 104.326 kg Physical Exam 2 Narrative: A-fib with slow ventricular sponsor Hemodynamic stable Euvolemic GCS 15 Currently on 2 L Pleasant cooperative Data 04/12/24 04:07 04/12/24 04:07 A&P Assessment and plan (1) History of atrial fibrillation: (2) Hx of gastroesophageal reflux (GERD): (3) Leg swelling: (4) Conjunctivitis: (5) Pneumonia: Plan Exertional shortness of breath Continue IV antibiotics, currently on 2 L Will need home O2 eval before discharge by tomorrow Afebrile COVID-19 negative A-fib RVR Discontinued Cardizem, keep on low-dose metoprolol A-fib with slow ventricular sponsor today Digoxin on hold Diastolic CHF without acute exacerbation hold off on IV fluids and diuretics for now Patient has not been eating well for last 1 week Encouraged oral hydration Full code Cardiac diet DVT prophylaxis covered Barbara Attestfern 2 Medical Necessity Statement*: Likely discharge by tomorrow Diagnoses History of atrial fibrillation Z86.79 Hx of gastroesophageal reflux (GERD) Z87.19 Leg swelling M79.89 Conjunctivitis H10.9 Pneumonia J18.9
[2024-04-12 12:51] LABS: Glucose Point of Care 231 mg/dL (70-110)
[2024-04-12 13:08] LABS: MRSA PCR OZH (swab) NOT DETECTED (Negative)
--- NOTE | 2024-04-12 15:42 | USCV_ITS ---
Derrick Efrem Age: 74 Gender: M : 1950 Exam Date: 04/12/2024 18:04 Ordering Phys: Johnie Garcia M.D ([email or web address]) Technologist: KVNG [place] [facility] [place]: atrial fibrillation, DM2, BP: 124 / 57 HR: 69 Rhythm: Atrial fibrillation Technical Quality: Adequate MEASUREMENTS (Male / Female) Normal Values 2D ECHO LV Diastolic Diameter PLAX 3.7 cm 4.2 - 5.9 / 3.9 - 5.3 cm IVS Diastolic Thickness 1.5 cm 0.6 - 1.0 / 0.6 - 0.9 cm IVS Systolic Thickness 1.7 cm LVPW Diastolic Thickness 1.5 cm 0.6 - 1.0 / 0.6 - 0.9 cm LVPW Systolic Thickness 1.6 cm LVOT Diameter 2.0 cm LV Ejection Fraction 2D Teich 55.3 % LV Ejection Fraction MOD 4C 51.9 % LV Ejection Fraction MOD 2C 66.4 % LV Ejection Fraction 2C AL 67.3 % LA Diameter 4.5 cm Aorta at Sinotubular Diameter 2.9 cm IVC Diameter 1.1 cm M-MODE LA Ao Ratio MM 1.0 AV Cusp Separation MM 1.7 cm DOPPLER AV Peak Velocity 125.0 cm/s LVOT Peak Velocity 76.0 cm/s AV Area Cont Eq vti 2.6 cm squared AV Area Cont Eq pk 1.9 cm squared MV Peak Velocity 92.0 cm/s MV Area PHT 2.9 cm squared Mitral E to A Ratio 93.0 TR Peak Velocity 215.0 cm/s TR Peak Gradient 18.5 mmHg TV Peak E Velocity 45.0 cm/s Right Atrial Pressure 10.0 mmHg Pulmonary Artery Systolic Pressu 28.5 mmHg PV Peak Velocity 101.0 cm/s FINDINGS Left Ventricle Normal left ventricular size and systolic function, EF 66%.no regional wall motion abnormalities. Mild left ventricular hypertrophy. Right Ventricle The right ventricle is normal in size and function. Right Atrium The right atrium is normal in size. Left Atrium The left atrium is normal in size. Mitral Valve Mild mitral annular calcification. Aortic Valve No gross abnormalities noted Tricuspid Valve No gross abnormalities noted Pulmonic Valve Trace pulmonary valve regurgitation. Pericardium Normal pericardium without effusion. Aorta Normal ascending aorta dimension. IVC Normal inferior vena cava. CONCLUSIONS Normal left ventricular size and systolic function, EF 66%.no regional wall motion abnormalities. Mild left ventricular hypertrophy. Mild mitral annular calcification. Trace pulmonary valve regurgitation. There is no pericardial effusion. There are no intracardiac masses. Compared to the previous study from 05/29/2022, there may not be significant change Dr Dunia Mobley MD [facility] (Electronically Signed) Final Date: 13 April 2024 09:55 S
[2024-04-12 17:30] LABS: Glucose Point of Care 214 mg/dL (70-110)
[2024-04-12 20:18] LABS: Glucose Point of Care 207 mg/dL (70-110)
[2024-04-12] MEDS: metoprolol tartrate 25 mg Tablet 12.5 MG PO (21:26)
[2024-04-13] VITALS (7 sets, daily range): BP systolic 104–134; BP diastolic 62–68; PULSE 68–87; RESP 19–26; TEMP 36.6–36.8; O2SAT 90–95
[2024-04-13 03:23] LABS: Basophils % 0.3 %; Eosinophils % 0.1 %; Hematocrit 35.8 % (37-53); Lymphocytes # 1.6 10^3/uL (0.8-4.8); Lymphocytes % 11.4 %; Mean Corpuscular HGB Conc 33.5 g/dL (30-55); Mean Corpuscular Hemoglobin 31.4 pg (27-33); Mean Corpuscular Volume 93.7 fl (82-101); Mean Platelet Volume 8.9 fL (7.4-10.4); Monocytes # 0.6 10^3/uL (0.2-0.9); Monocytes % 4.4 %; Neutrophils # 11.22 10^3/uL (1.8-7.7); Neutrophils % 81.7 %; Nucleated Red Blood Cells % 0.2 %; Platelet Count 344 10^3/cmm (157-399); Red Blood Count 3.82 10^6/uL (3.85-5.65); Red Cell Distribution Width 15.7 % (12.1-15.1); White Blood Count 13.73 10^3/uL (3.29-11.43)
[2024-04-13 03:52] LABS: Anion Gap 16.6 (5-19); Blood Urea Nitrogen 34 mg/dL (8-23); Calcium 8.2 mg/dL (8.5-10.5); Carbon Dioxide 32 mmol/L (22-29); Chloride 90 mmol/L (98-107); Creatinine Clr Calc Pharmacy 97.5015; Glucose 164 mg/dL (65-115); Osmolality Calculated 291 mOsm/kg (285-295); Potassium 3.6 mmol/L (3.5-5.1); Sodium 135 mmol/L (136-145)
[2024-04-13 03:54] LABS: Digoxin 1.2 ng/mL (0.6-1.2)
[2024-04-13 07:57] LABS: Glucose Point of Care 169 mg/dL (70-110)
[2024-04-13] MEDS: cefTRIAXone 1,000 mg SDV 1000 MG IVP (09:17)
[2024-04-13] MEDS: metoprolol tartrate 25 mg Tablet 12.5 MG PO (09:18)
[2024-04-13] MEDS: predniSONE 20 mg Tablet 40 MG PO (09:18)
[2024-04-13] MEDS: pantoprazole DR 40 mg Tablet PO (09:18)
[2024-04-13] MEDS: doxycycline 100 mg Tablet PO (09:18)
[2024-04-13] MEDS: rivaroxaban 10 mg Tablet 20 MG PO (09:18)
[2024-04-13] MEDS: ciprofloxacin 0.3% Op Soln 2.5 mL Btl 1 DROP EYE-BOTH (09:18)
--- NOTE | 2024-04-13 10:12 | PM.DCS ---
Discharge Providers Date of Admission: 04/11/24 15:59 Date of Discharge: April 13, 2024 Attending Provider at Admission: Luma Macias MD Attending Provider at Discharge: Og Sanderson MD Primary Care Provider: Armando Sanchez DO Diagnoses at Discharge Discharge Diagnosis (1) Atrial fibrillation with RVR: Status: Acute (2) Chest pain: Status: Acute Reason for Visit Reason for Visit: CP, SOB Hospital Course Hospital Course 74 male who was admitted for management of A-fib RVR and interstitial pneumonia. He required 1 to 2 L of oxygen intermittently, he was evaluated by hat stock laminating machine operator for concern related to STEMI however his symptoms were related to underlying pneumonia. His echo did not show any wall motion abnormality without significant change in ejection fraction. He remained hemodynamically stable. He was kept on ceftriaxone and doxycycline his leukocytosis is secondary to use of prednisone, he may resume his Xarelto however we have decreased the dosage of AV jonelle blocking agents, his digoxin level was high 1.9, patient became bradycardic with Cardizem drip. At the time of discharge I have continued metoprolol 25 mg twice daily regimen along Xarelto. Discontinue digoxin and Cardizem. He may get a cardiac stress test in the next 2 weeks, CT chest rule out PE, troponin trending down, Physical Exam Narrative: Awake and alert Euvolemic A-fib without RVR Pleasant cooperative Discharge Data Studies Completed and Pending Completed Studies During Hospitalization Category Date Time Status CT angio chest PE protcl [id number] Stat Cat Scan 04/11/24 14:24 Completed XR chest 1V portable [id number] Stat Exams 04/11/24 12:40 Completed CV. echo complete* [id number] Routine Ultrasound 04/12/24 15:42 Completed Radiology Impressions Chest X-Ray 04/11/24 12:40 IMPRESSION: Bilateral interstitial lung disease which has developed since 2018. This could represent acute interstitial pneumonia. Chest CTA 04/11/24 14:24 IMPRESSION: Bilateral interstitial pneumonia Laboratory Results WBC 13.73 10^3/uL (3.29-11.43) H 04/13/24 02:38 RBC 3.82 10^6/uL (3.85-5.65) L 04/13/24 02:38 Hgb 12.00 g/dL (11.27-16.99) 04/13/24 02:38 Hct 35.8 % (37-53) L 04/13/24 02:38 MCV 93.7 fl (82-101) 04/13/24 02:38 MCH 31.4 pg (27-33) 04/13/24 02:38 MCHC 33.5 g/dL (30-55) 04/13/24 02:38 RDW 15.7 % (12.1-15.1) H 04/13/24 02:38 Plt Count 344 10^3/cmm (157-399) 04/13/24 02:38 MPV 8.9 fL (7.4-10.4) 04/13/24 02:38 Neut % (Auto) 81.7 % 04/13/24 02:38 Lymph % (Auto) 11.4 % 04/13/24 02:38 [place] % (Auto) 4.4 % 04/13/24 02:38 Eos % (Auto) 0.1 % 04/13/24 02:38 Baso % (Auto) 0.3 % 04/13/24 02:38 Neut # (Auto) 11.22 10^3/uL (1.8-7.7) H 04/13/24 02:38 Lymph # (Auto) 1.6 10^3/uL (0.8-4.8) 04/13/24 02:38 [place] # (Auto) 0.6 10^3/uL (0.2-0.9) 04/13/24 02:38 Eos # (Auto) 0.0 10^3/uL (0.0-0.8) 04/13/24 02:38 Baso # (Auto) 0.0 10^3/uL (0.0-0.1) 04/13/24 02:38 Nucleated RBC % (auto) 0.2 % 04/13/24 02:38 Nucleated RBCs # 0.0 /100WBC 04/13/24 02:38 PT 37.40 SECONDS (12.1-14.9) H 04/11/24 12:55 INR 3.61 (0.8-1.2) H 04/11/24 12:55 Sodium 135 mmol/L (136-145) L 04/13/24 02:38 Potassium 3.6 mmol/L (3.5-5.1) 04/13/24 02:38 Chloride 90 mmol/L (98-107) L 04/13/24 02:38 Carbon Dioxide 32 mmol/L (22-29) H 04/13/24 02:38 Anion Gap 16.6 (5-19) 04/13/24 02:38 BUN 34 mg/dL (8-23) H 04/13/24 02:38 Creatinine 0.9 mg/dL (0.7-1.2) 04/13/24 02:38 GFR Calculation Not Reportable 04/13/24 02:38 Glucose 164 mg/dL (65-115) H 04/13/24 02:38 POC Glucose 169 mg/dL (70-110) H 04/13/24 06:59 Estimat Average Glucose 128 04/11/24 12:55 Hemoglobin A1c 6.1 % (4.0-6.0) H 04/11/24 12:55 Calculated Osmolality 291 mOsm/kg (285-295) 04/13/24 02:38 Calcium 8.2 mg/dL (8.5-10.5) L 04/13/24 02:38 Magnesium 2.0 mg/dL (1.7-2.3) 04/12/24 04:07 Total Bilirubin 0.7 mg/dL (0.15-1.2) 04/12/24 04:07 AST 23 U/L (0-40) 04/12/24 04:07 ALT 11 U/L (0-41) 04/12/24 04:07 Alkaline Phosphatase 94 U/L (40-130) 04/12/24 04:07 Troponin T Baseline 26 ng/L (0-15) H 04/11/24 12:55 Troponin T 120 Minute 30.05 ng/L (0-15) H 04/11/24 15:04 Delta Troponin T 4.05 ABS# (0-10) 04/11/24 15:04 Troponin T Hi Sens 6Hr 23.82 ng/L (0-15) H 04/11/24 18:44 Troponin T Hi Sens 6Hr Delta -2.18 ng/L (0-12) L 04/11/24 18:44 NT-Pro-B Natriuret Pep 863 pg/mL (0-125) H 04/11/24 12:55 Total Protein 7.2 g/dL (6.6-8.7) 04/12/24 04:07 Albumin 2.9 g/dL (3.5-5.2) L 04/12/24 04:07 Globulin 4.3 g/dL (1.3-4.6) 04/12/24 04:07 Triglycerides 91 mg/dL (0-150) 04/11/24 12:55 Cholesterol 80 mg/dL (0-200) 04/11/24 12:55 LDL Cholesterol, Calc 36 mg/dL (50-129) L 04/11/24 12:55 HDL Cholesterol 26 mg/dL (60-100) L 04/11/24 12:55 LDL/HDL Ratio 1.38 RATIO (0.00-3.22) 04/11/24 12:55 Cholesterol/HDL Ratio 3.08 mg/dL (1.0-5.00) 04/11/24 12:55 Procalcitonin 0.44 ng/mL (0-0.5) 04/11/24 12:55 TSH 0.78 uIU/mL (0.27-4.20) 04/11/24 12:55 Nasal MRSA (PCR) Not detected (Negative) 04/12/24 11:09 Digoxin 1.2 ng/mL (0.6-1.2) 04/13/24 02:38 Coronavirus 229E (PCR) Not detected (NOT DETECT) 04/11/24 22:14 SARS-CoV-2 (PCR) Not detected (NOT DETECT) 04/11/24 22:14 Vitals Last Vital Signs Temp 98.0 F 04/13/24 07:41 Pulse 87 04/13/24 07:41 Resp 26 H 04/13/24 07:41 BP 104/68 04/13/24 07:41 Pulse Ox 93 04/13/24 07:41 O2 Del Method Nasal Cannula 04/13/24 07:41 O2 Flow Rate 1 04/13/24 04:00 Discharge Plan Discharge Patient Disposition: Home Condition: Stable Prescriptions: New doxycycline monohydrate 100 mg Tablet 100 mg PO BID Qty: 8 0RF metoprolol tartrate 25 mg Tablet 25 mg PO BID@0900,2100 Qty: 60 3RF Continued aspirin [Adult Aspirin Regimen] 81 mg tablet,delayed release (DR/EC) 81 mg PO DAILY (DME) Accutrend Glucose test strips Strip See Rx Instructions .Route Rx Instructions: As directed to test BS BID (DME) blood-glucose meter [Accu-Chek Guide Glucose Meter] Misc See Rx Instructions .Route Qty: 1 0RF Rx Instructions: As directed (DME) lancets [Accu-Chek Softclix Lancets] Misc See Rx Instructions .Route Qty: 200 11RF Rx Instructions: As directed atorvastatin 40 mg tablet 40 mg PO .HS Qty: 90 3RF Xarelto 20 mg tablet 20 mg PO DAILY Qty: 90 3RF Rx Instructions: must administer with evening meal omeprazole 20 mg capsule,delayed release(DR/EC) See Rx Instructions .ROUTE .COMPLEX Qty: 90 3RF Dose Instruction: TAKE 1 CAPSULE DAILY Rx Instructions: TAKE 1 CAPSULE DAILY metformin 500 mg tablet 500 mg PO BID Qty: 180 2RF furosemide [Lasix] 20 mg tablet 20 mg PO DAILY Qty: 30 1RF potassium chloride 20 mEq tablet extended release 20 meq PO DAILY Qty: 90 0RF Rx Instructions: Take 30 mg daily with lasix potassium chloride 10 mEq tablet extended release 10 meq PO DAILY Qty: 90 0RF Rx Instructions: take 30 mEq daily with lasix Discontinued digoxin 250 mcg (0.25 mg) tablet 250 mcg PO DAILY Qty: 90 3RF diltiazem HCl 180 mg capsule,extended release 24 hr 180 mg PO DAILY Qty: 90 4RF metoprolol succinate 50 mg tablet extended release 24 hr 50 mg PO DAILY Qty: 90 3RF Discharge Orders: Discharge Order (Routine); Ordered 04/13/24 Ordered By: Og Sanderson Other Ambulatory Orders: NM paulino perf SPECT r/s* [id number] (Routine) Timeframe: 3 Weeks Facility: [facility] - Location: Radiology Ordered By: Og Sanderson Referrals: Shreya Monaco NP [Nurse Practitioner] - 04/21/24 9:15 am Patient Instructions: Opioid Safety Discharge Attestations Time Spent in Discharge Care*: greater than 30 min Quality Metrics Clinical Quality Measures [ No reported AMI, CVA or VTE this stay] Coding Level of Care Code Acute Code for [facility] Fwd Diagnoses Atrial fibrillation with RVR I48.91 Chest pain R07.9
--- NOTE | 2024-04-13 10:51 | PC.NURSE ---
called to patients by RT with reports that patient fell upon entering the room patient sitting on the floor at bedside RT reports he was standing find and was getting ready to walk with a walker and he started to lean and fell straight on to his bottom patient assessed for injury none noted provider notified no further orders
--- NOTE | 2024-04-13 11:27 | PC.SOCIAL ---
Patient didnt qualify for oxygen, patient to discharge home with no needs at this time.
--- NOTE | 2024-04-13 13:14 | PC.SOCIAL ---
Patient was seen by PT right before leaving facility and they recommend HH and a walker, CM spoke to and she had no preference for either DME or HH. Informed her that with his [facility] insurance there might be issues finding a HH that will accept
--- NOTE | 2024-04-13 14:44 | PC.NURSE ---
Discharge Note Patient discharged to home via stretcher accompanied by spouse. Discharge instructions reviewed with patient and/or inside sales representative. Mobile pharmacy medications and/or prescriptions provided. Belongings/home medications returned. case mgt is aware about dme:walker w/c was given to and home health PT per PT eval this morning.
== END 2024-04-13 14:44 | disposition home or self-care (01) ==
LOC: ER 15:09 → CSU 18:06
PROVIDERS: Emergency Medicine; Absent Provider Internal Medicine Cardiovascular Disease; Admitting Provider Internal Medicine; Emergency Provider Emergency Medicine; Family Provider Family Medicine; PCP Family Medicine; Visit Provider Internal Medicine
DX: I48.91 Unspecified atrial fibrillation (principal); J84.9 Interstitial pulmonary disease, unspecified; Z99.81 Dependence on supplemental oxygen; K21.9 Gastro-esophageal reflux disease without esophagitis; M79.89 Other specified soft tissue disorders; H10.9 Unspecified conjunctivitis; Z79.01 Long term (current) use of anticoagulants; Z79.82 Long term (current) use of aspirin; E11.42 Type 2 diabetes mellitus with diabetic polyneuropathy; Z87.891 Personal history of nicotine dependence; I50.30 Unspecified diastolic (congestive) heart failure; J18.9 Pneumonia, unspecified organism; Z23 Encounter for immunization
CPT/HCPCS: 36415; 36416; 71045; 71275; 80048; 80053; 80061; 80162; 82962; 83036; 83735; 83880; 84145; 84443; 84484; 85025; 85610; 87635; 90471; 90686; 90732; 93005; 93306; 94760; 96365; 96366; 96367; 96372; 96375; 96376; 97116; 97161; 99285; G0378; J0456; J0696; J1815; J2270; J2405; J3490; J7030; J7050; J7512

== ENCOUNTER → 2024-04-16 09:55 | Outpatient (BNVA) | payer MEDICARE, SELFPAY | PROVIDERS: Family Provider Family Medicine; PCP Family Medicine; Visit Provider Internal Medicine Cardiovascular Disease | DX: I50.9 Heart failure, unspecified (principal); I10 Essential (primary) hypertension; Z86.79 Personal history of other diseases of the circulatory system; M79.89 Other specified soft tissue disorders | CPT/HCPCS: 80048; 83880 ==

== ENCOUNTER → 2024-04-21 09:05 | Outpatient (BNVA) | payer MEDICARE, SELFPAY | PROVIDERS: Family Provider Family Medicine; PCP Family Medicine; Visit Provider Nurse Practitioner Family | DX: I10 Essential (primary) hypertension (principal); Z86.79 Personal history of other diseases of the circulatory system; I49.9 Cardiac arrhythmia, unspecified; I48.91 Unspecified atrial fibrillation | CPT/HCPCS: 80048; 93005 ==

== ENCOUNTER → 2024-04-28 13:00 | Outpatient (BNVA) | payer MEDICARE, SELFPAY | PROVIDERS: Family Provider Family Medicine; PCP Family Medicine; Visit Provider Nurse Practitioner Family | DX: I50.9 Heart failure, unspecified (principal) | CPT/HCPCS: 83880 ==

== ENCOUNTER 2024-05-11 09:25 | Outpatient (CLI) | payer MEDICARE, SELFPAY ==
[2024-05-11 09:37] VITALS: BMI 25.4
--- NOTE | 2024-05-11 09:37 | NMCV_ITS ---
NM paulino perf SPECT r/s* [id number] Efrem Meza Age: 74 Gender: M : 1950 Exam Date: 05/11/2024 09:37 Ordering Phys: Og Sanderson MD Technologist: ZEE Kaplan Exam Location: [facility] Indications: cp STRESS TEST Please see separate stress test report in [facility] for full findings IMAGE PROTOCOL Rest/Stress 1 Lexiscan Day Radiopharmaceutical Dose (mCi) Administration Site Administered by Rest: Tc-99m 10.[address], [place]OULTRY[place] Sestamibi Stress:Tc-99m 33 IV Makeda Rayna, [place]OUL[place] Sestamibi Rest: 11-May-2024 60 Discovery 630 Stress: 11-May-2024 30 Discovery 630 0.4mg Lexiscan. Images obtained in supine and prone position. SPECT RESULTS Technical Quality: Good Raw Data Analysis: Normal Image Corrections: No attenuation or motion correction applied Summed Stress Score: 8 Summed Rest Score: 11 Summed Difference Score: 0 PERFUSION FINDINGS Moderate areas of minimal to moderately decreased tracer uptake involving the mid and apical inferior, mid inferolateral, apical lateral, mid anteroseptal and apical septal regions. No significant reversibility was noted in these regions. FUNCTIONAL RESULTS (calculated via Gated SPECT) Stress Image LV EF (%): 51 Stress EDV (mL):78 TID: 0.86 Stress ESV (mL):38 FUNCTIONAL FINDINGS: Segmental wall motion analysis revealing no gross wall motion abnormalities IMPRESSIONS 1. Myocardial perfusion imaging revealing areas of persistent decreased tracer uptake involving the inferior, inferolateral, anteroseptal and apical segments, suggesting myocardial scarring versus attrition artifact 2. Normal LV ejection fraction 51%. 3. LV wall motion analysis revealing no gross wall motion abnormalities. 4. Nnormal LV volume Low probability for coronary ischemia, based on the above findings No similar previous studies are available for comparison Dr Dunia Mobley MD [facility] (Electronically Signed) Final Date: 11 May 2024 13:30 S
--- NOTE | 2024-05-11 09:37 | ECG_ITS ---
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 Interpretive Statements Lung unchanged pre/post procedure; Intraprocedure shortess of breath; Symptoms resoled by discharge PROCEDURE: At the baseline, the EKG revealed atrial fibrillation with rapid ventricular rate of 117 bpm. Rare PVCs.. The baseline heart was 117 bpm with a blood pressue of 130/101 mm of Hg Lexiscan was infused over a period of 20 seconds. A total of 0.4 milligrams of Lexiscan was infused. The stress phase was continued for a total of 5 minutes. Heart rate at the end of the stress phase was 121 bpm with a blood pressure 112/88 mm of Hg. The EKG at the peak infusion revealed no significant changes. Sestamibi was injected 20 seconds after the Lexiscan infusion. Heart rate at the end of the recovery phase was 116 bpm with a blood pressure of 125/79 mm of Hg. CONCLUSION: 1. No significant EKG changes with the LexiScan infusion 2. No LexiScan induced chest pain or cardiac arrhythmia 3. Normal blood pressure and heart rate response 4. Sestamibi/sestamibi perfusion scan pending; see separate report. Electronically Signed On 05-15-2024 13:11:26 [employer] by Dunia Mobley M.D. [email or web address]
[2024-05-11] MEDS: regadenoson 0.4 Mg/5 ml Syringe IVP (10:51)
--- NOTE | 2024-05-11 11:01 | PC.NURSE ---
Called Dr. Mobley about patient being in A fib with RVR, Dr. Mobley stated okay to proceed with lexiscan.
[2024-05-11 11:03] VITALS: BP 125/79; PULSE 116
== END 2024-05-11 09:26 | disposition home or self-care (01) ==
PROVIDERS: PCP Family Medicine; Visit Provider Internal Medicine
DX: R07.9 Chest pain, unspecified (principal); R06.02 Shortness of breath
CPT/HCPCS: 36415; 78452; 93017; 96374; A9500; J2785

== ENCOUNTER → 2025-05-30 10:36 | Outpatient (BNVA) | payer MEDICARE, SELFPAY | PROVIDERS: PCP Nurse Practitioner Family; Visit Provider Internal Medicine Cardiovascular Disease | DX: I48.19 Other persistent atrial fibrillation (principal); I10 Essential (primary) hypertension; D64.9 Anemia, unspecified; T14.8XXA Other injury of unspecified body region, initial encounter; X58.XXXA Exposure to other specified factors, initial encounter; Z87.891 Personal history of nicotine dependence; I49.3 Ventricular premature depolarization | CPT/HCPCS: 93005; 99214 ==

== ENCOUNTER → 2025-05-31 13:30 | Outpatient (BNVA) | payer MEDICARE, SELFPAY | PROVIDERS: PCP Nurse Practitioner Family; Visit Provider Nurse Practitioner Family | DX: I10 Essential (primary) hypertension (principal); E11.9 Type 2 diabetes mellitus without complications | CPT/HCPCS: 80053; 80061; 83036; 85025 ==